=== PATIENT | male | born 1940 | race Caucasian/White ===

== ENCOUNTER 2017-06-25 10:24 | Outpatient (CLI) | payer MEDICARE, OTHER | END 2017-06-25 10:25 | disposition home or self-care (01) | LOC: SC 10:24 | PROVIDERS: ATTEND Nurse Practitioner Family | DX: G47.33 Obstructive sleep apnea (adult) (pediatric) (principal); K21.9 Gastro-esophageal reflux disease without esophagitis | CPT/HCPCS: 99214; G0463; 99212 ==

== ENCOUNTER 2018-06-25 11:04 | Outpatient (CLI) | payer MEDICARE, OTHER | END 2018-06-25 11:05 | disposition home or self-care (01) | LOC: SC 11:04 | PROVIDERS: ATTEND Nurse Practitioner Family | DX: G47.33 Obstructive sleep apnea (adult) (pediatric) (principal) | CPT/HCPCS: 99214; G0463; 99212 ==

== ENCOUNTER 2018-07-30 13:11 | Outpatient (CLI) | payer MEDICARE, OTHER ==
--- NOTE | 2018-07-30 13:45 | XRAY Report ---
Reason: PAON IN RIGHT HIP Procedure Date: 07/30/2018 Accession Number: [id number] / [id number] Procedure: XRN - Hip w/Pelvis 2-3V RT CPT Code: FULL RESULT: EXAM: RIGHT HIP AND PELVIS RADIOGRAPHY EXAM DATE: 07/30/2018 01:35 PM. HISTORY: Persistent pain after fall. COMPARISONS: None. TECHNIQUE: 1 view of the pelvis and 1 view of the hip. FINDINGS: Bones: Osteopenia. No definite fracture or other bone lesion. Joints: Bilateral hip joint space narrowing with marginal osteophytes, right more than left. Unremarkable SI joints and pubic symphysis. Degenerative joint and disk disease in lower lumbar spine. Soft Tissues: Unremarkable. IMPRESSION: 1. Moderate right hip degenerative joint disease. 2. Other chronic findings. No definite acute disease. RADIA
== END 2018-07-30 13:12 | disposition home or self-care (01) ==
LOC: DI.N 13:11
PROVIDERS: ATTEND Family Medicine
DX: M16.11 Unilateral primary osteoarthritis, right hip (principal)

== ENCOUNTER 2019-01-14 12:27 | Outpatient (CLI) | payer MEDICARE, OTHER ==
--- NOTE | 2019-01-14 15:01 | XRAY Report ---
Reason: PNEUMONIA Procedure Date: 01/14/2019 Accession Number: [id number] / [id number] Procedure: XR - Chest 2 View X-Ray CPT Code: 65321 FULL RESULT: EXAM: CHEST RADIOGRAPHY EXAM DATE: 01/14/2019 12:31 PM. CLINICAL HISTORY: Pneumonia. COMPARISON: None. TECHNIQUE: 2 views. FINDINGS: Lungs/Pleura: No focal opacities evident. No pleural effusion. No pneumothorax. Normal volumes. Mediastinum: Cardiomediastinal silhouette is borderline enlarged, mild aortic arch calcifications. Other: None. IMPRESSION: No definite pneumonia is detected. RADIA
== END 2019-01-14 12:28 | disposition home or self-care (01) ==
LOC: DI 12:27
PROVIDERS: ATTEND Family Medicine
DX: J18.9 Pneumonia, unspecified organism (principal)
CPT/HCPCS: 71046

== ENCOUNTER 2019-07-07 12:46 | Outpatient (CLI) | payer MEDICARE, OTHER ==
[2019-07-07 14:02] VITALS: BP 100/60
--- NOTE | 2019-07-07 14:02 | SLEEP CARE CONSULTATION ---
Information from patient questionnaire entered by Lacy Mathews. I have reviewed and concur with the information entered by Lacy Mathews. This document represents the service I personally performed and the decisions made by me, Josephine Dodge, RN, MSN, DIRECTOR OF FOOD AND NUTRITION. History of Present Illness Previous diagnosis: Mild, Obstructive Sleep Apnea-Hypopnea Syndrome AHI: 6.2 Reason for CPAP/BiPAP follow up: annual Equipment type: CPAP Equipment obtained from: [facility] Mask style: Nasal (Dreamwear) Mask brand: Respironics Backup mask available: Yes Last cushion change: 3 days ago Prior sleep studies: Yes HPI additional information: Patient's spouse has noted increased memory problems for patient. This has been evaluated and sees PCP monthly and saw a neurologist. She has also noted using him using CPAP less intermittently and is more sleepy during the day. The patient started dozing during appointment. She has someone coming in 3 hours a week to help patient. Patient's daughter lives with them to help but instead seems to causing more stress to spouse. The spouse feels overwhelmed and has talked to PCP. She thinks counseling would help to discuss her concerns. I encouraged her to again talk with PCP about concerns and discussed checking for assistance at [facility] and support from friends / family. Subjective Patient concerns: reports: condensation in mask/hose (rare), dry mouth, nose, throat (mild), epistaxis, other (oral venting with CPAP most of time. He just got a new mask headgear a few months ago). denies: aerophagia, mask discomfort, air blowing in eyes, mask leak noise, nasal congestion Observed to snore while using device: No Current pressure setting perceived as: comfortable On therapy, patient: reports: sleeping better Initial Stone Sleepiness Scale score: 10 Current Stone Sleepiness Scale score: 21 (does not drive) Allergies and Home Medications Known drug allergies: No Home medication list reviewed: Yes Allergy and home medication list: Medication List Medication Name (generic/name brand) Strength & Dosage Polyethylene Glycol 3350 Oral Powder Mix 17g to 4oz beverage daily Omeprazole DR 20mg cap one daily Simvastatin 40mg tab one daily at bedtime Finasteride 5mg tab one daily Amlodipine Besylate 5mg tab one twice daily Namenda XR 75mg cap two twice daily Aricept 5mg tab one twice daily Triamcinolone Acetonide 0.1% ext. cream Apply to affected area twice daily prn Fluticasone Propionate 50mcg/act zechariah. One spray each nostril daily prn Alfuzosin 10mg tab one twice daily DocQlace Stool Softner As directed Review of Systems Review of systems same as previous: No (his memory has reduced and sleepiness has increased) Physical Exam Blood Pressure: 100/60 Cuff size: long Heart Rate: 61 O2 Saturation: 95 Height: 5 ft 10 in Weight (kg): 243 lb Body Mass Index: 34.8 BMI Classification: Class 1 Impression and Plan 1. Obstructive Sleep Apnea-Hypopnea Syndrome, mild with unknown treatment compliance and apnea control. On CPAP therapy, the patient has better sleep quality but has had increasing sleepiness symptoms the past year. There is unknown treatment compliance as unable to download card due our JAVA not working. My staff contacted [facility] to see if their RT could download. Until then, to improve CPAP benefit, I fitted patient with large DW full face mask - size large cushion. It is hoped that his oral venting will be resolved and more benefit from his CPAP treatment will be noted with less sleepiness symptoms if due to CPAP. Cleaning instructions reference sheet given to answer spouse questions. Patient came in a wheeled walker with seat and needed assistance of spouse to stand and sit. I needed to help getting his weight. Spouse has limited help coming in home and broke down in tears stating she felt overwhelmed. I advised her to contact [facility] to see if any other assistance available. She is also encouraged to follow up with her PCP as planned to discuss counseling for her concerns about her daughter and spouse. She agreed with plan. Patient's apnea severity and rationale for treatment to reduce apnea, improve sleep quality and reduce cardiovascular and cerebrovascular events was reviewed. I also reviewed the benefit of consistent device use of CPAP for hypertension. The patient has lost about 10 pounds but pressure still comfortable, I will need complaince report to see if pressure needs to be adjusted. * Continue CPAP pressure at 11 cmH2O * Obtain compliance report * Try new DW full face mask. * Contact resources discussed to get more help. * Notify me if snoring with mask or feeling that the pressure is too much or too little * Return for follow up in 2 months , or sooner if concerns arise I spent 100% of this 30 minute visit face to face with the patient with greater than 50% of this was spent time counseling the patient and coordination of care.
== END 2019-07-07 12:47 | disposition home or self-care (01) ==
LOC: SC 12:46
PROVIDERS: ATTEND Nurse Practitioner Family
DX: G47.33 Obstructive sleep apnea (adult) (pediatric) (principal)
CPT/HCPCS: 99214; G0463; 99212

== ENCOUNTER 2019-07-19 15:01 | Outpatient (CLI) | payer MEDICARE, OTHER | END 2019-07-19 15:02 | disposition short-term general hospital (02) | LOC: EMS 15:01 | PROVIDERS: ATTEND Surgery | DX: R53.1 Weakness (principal); W19.XXXA Unspecified fall, initial encounter; Y92.003 Bedroom of unspecified non-institutional (private) residence as the place of occurrence of the external cause | CPT/HCPCS: A0425; A0429; A0888 ==